=== PATIENT | male | born 1995 | race Caucasian/White ===

== ENCOUNTER 2022-06-17 07:50 | Outpatient (CLI) | payer OTHER | END 2022-06-17 13:15 | disposition home or self-care (01) | LOC: LAB 07:50 | DX: D52.8 Other folate deficiency anemias (principal); I10 Essential (primary) hypertension; R73.01 Impaired fasting glucose; E03.8 Other specified hypothyroidism; E78.2 Mixed hyperlipidemia; E53.8 Deficiency of other specified B group vitamins; E55.9 Vitamin D deficiency, unspecified; I11.9 Hypertensive heart disease without heart failure; R10.10 Upper abdominal pain, unspecified ==

== ENCOUNTER 2022-07-07 13:09 | Outpatient (CLI) | payer OTHER | END 2022-07-07 13:22 | disposition home or self-care (01) | LOC: RAD 13:09 | DX: M25.551 Pain in right hip (principal); M25.562 Pain in left knee ==